=== PATIENT | female | born 1970 | race Caucasian/White ===

== ENCOUNTER → 2018-06-29 | Outpatient (CLI) | payer OTHER | LOC: M RAD 09:40 | DX: Z12.31 Encounter for screening mammogram for malignant neoplasm of breast (principal) ==

== ENCOUNTER → 2018-07-03 | Outpatient (CLI) | payer OTHER | LOC: M RAD 09:33 | DX: Z12.31 Encounter for screening mammogram for malignant neoplasm of breast (principal); Z92.29 Personal history of other drug therapy | CPT/HCPCS: 77067 ==

== ENCOUNTER → 2020-05-26 | Outpatient (CLI) | payer OTHER ==
--- NOTE | 2020-05-26 15:51 | REPMRS ---
Patient History The patient states she has not had a clinical breast exam in over a year. No known family history of cancer. Taking unspecified hormones for 22 years. Digital Woman Screen Mammo: May 26, 2020 - Exam #: [id number] Bilateral CC and MLO view(s) were taken. Technologist: Maryjane Poe, Technologist Prior study comparison: July 03, 2018, bilateral digital mammo screening bilat, performed at [facility]. May 2018, bilateral digital mammo screening bilat, performed at [facility]. FINDINGS: The breast tissue is almost entirely fat. The Volpara volumetric breast density category is: A. There is an irregular density in the medial left breast seen best on the craniocaudal view. This merits further evaluation. There has been no change in the appearance of the mammogram from the prior studies. There is no interval development of dominant mass, architectural distortion, or grouped microcalcification typical of malignancy. 3-D tomosynthesis shows no additional findings. Assessment: BI-RADS/ACR category 0 mammogram, Incomplete: Need additional imaging evaluation and/or prior mammograms for comparison. Recommendation Ultrasound and special view mammogram of the left breast. This patient's Lifetime Breast Cancer RIsk is estimated at 11.8 %. This mammogram was interpreted with the aid of an FDA-approved computer-aided dectection system. Electronically Signed By: Sukumar Bryant MD 05/26/20 0176
== END ==
LOC: M WHC 12:00
PROVIDERS: ATTEND Family Medicine
DX: R92.2 Inconclusive mammogram (principal); Z79.899 Other long term (current) drug therapy

== ENCOUNTER → 2020-06-09 | Outpatient (CLI) | payer OTHER ==
--- NOTE | 2020-06-30 08:59 | REP ---
DIAGNOSTIC MAMMOGRAM LEFT BREAST AND LEFT BREAST ULTRASOUND FINDINGS: Spot compression views and tomographic sequences are obtained of the left breast to further evaluate an irregular density seen on the prior mammogram of 05/26/2020 in the medial aspect of the left breast. Todays additional views and images show persistence of an irregular nodular opacity in the medial left breast in the region of the 9 oclock position, approximately 11 cm from the nipple. It is best seen on the tomographic sequences of the left breast in the CC and ML projections. It is not present on prior studies including 07/03/2018 and 06/26/2017. Real-time sonographic evaluation of the 9 oclock region of the left breast was performed. No cystic or solid nodule was seen sonographically in this region. IMPRESSION: ACR 4 suspicious. Persistent irregular somewhat nodular opacity medial left breast in the region of 9 oclock. This not seen on prior exams. There is no sonographic correlate. Recommend stereotactic biopsy. ACR 4 suspicious. Send letter 4. MTDD
== END ==
LOC: M WHC 11:05
PROVIDERS: ATTEND Family Medicine
DX: N63.25 Unspecified lump in the left breast, overlapping quadrants (principal)

== ENCOUNTER → 2020-08-15 | Outpatient (CLI) | payer OTHER ==
--- NOTE | 2020-08-15 10:37 | REP ---
INDICATION: R22.32 LT SHOULDER PALP LUMP,? LIPOMA COMPARISON: None TECHNIQUE: Realtime grayscale ultrasound examination using linear high-frequency transducer. FINDINGS: Directed ultrasound examination along the left shoulder in the area of palpable mass demonstrates 2.4 x 2.7 x 1.3 cm ovoid isoechoic avascular structure which is consistent with a lipoma and should be correlated with physical examination. IMPRESSION: Ovoid isoechoic lesion consistent with lipoma. <Electronically signed by Primo Alex > 08/15/20 103
--- NOTE | 2020-08-15 12:28 | REP ---
INDICATION: R92.8 ABNORMAL MAMMOGRAM LT BREAST,STEREOTACTIC BX,POST BX. COMPARISON: 06/09/2020 and 05/26/2020. TECHNIQUE: ML and CC views of left breast performed following stereotactic biopsy of irregular density medially in the left breast. FINDINGS: Biopsy clip is noted at the site of the previously identified irregular density. IMPRESSION: Good clip positioning at the site of the stereotactic biopsy medially left breast. Irregular density at that location was biopsied today stereotactically. RECOMMENDATION: Clinical follow-up. <Electronically signed by Guru Mary > 08/15/20 [id number]
[2020-08-15 13:08] VITALS: BP 124/80
--- NOTE | 2020-08-15 18:04 | REP ---
INDICATION: R92.8 ABNORMAL MAMMOGRAM LT BREAST,STEREOTACTIC BX. COMPARISON: None. TECHNIQUE: This procedure is performed by Alexandra Fernández [facility], under the direct supervision of Dr. Mary. The risks and benefits of the procedure were explained to the patient and informed consent was obtained both verbally and written. Directly prior to the start of the procedure, a formal timeout was done in the procedure room. The cranial caudal approach was utilized on the prone table. The left breast abnormality was localized using mammographic guidance. The skin was prepped and draped in a sterile fashion. Three ml of buffered lidocaine 1% lidocaine 10 mg/ml was used as a local anesthetic. FINDINGS: A 10 gauge suction assisted mammotome needle was inserted and advanced into the breast abnormality and 6 core biopsy samples were obtained. A marker clip was placed at the biopsy site. The patient tolerated the procedure well and there were no immediate complications. After the appropriate amount of monitored convalescence the patient was discharged from the department. IMPRESSION: Stereotactic biopsy of left breast with a micro clip placement. <Electronically signed by Alexandra Fernández > 08/15/20 [id number] <Electronically signed by Guru Mary > 08/15/20 1800
== END ==
LOC: M WHC 09:58
PROVIDERS: ATTEND Surgery
DX: R22.32 Localized swelling, mass and lump, left upper limb (principal); Z97.8 Presence of other specified devices

== ENCOUNTER → 2021-02-02 | Outpatient (CLI) | payer OTHER ==
--- NOTE | 2021-02-02 13:32 | REP ---
INDICATION: 6 MO F/U/DIAG LEFT BREAST MAMMO/S/P L STERIO BX. COMPARISON: Multiple TECHNIQUE: Left mammogram cc and MLO views 2D and 3D modalities FINDINGS: The left breast is unchanged in size and shape. The postprocedural clip is unchanged in position. There are no new abnormalities. IMPRESSION: BIRADS/ACR category 2 negative mammogram. The patient letter being requested is M1. RECOMMENDATION: Repeat screening mammography recommended 1 year (for women over 40). <Electronically signed by Tee Treviño > 02/02/21 [id number]
== END ==
LOC: M WHC 12:46
PROVIDERS: ATTEND Surgery
DX: R92.8 Other abnormal and inconclusive findings on diagnostic imaging of breast (principal)
CPT/HCPCS: 77065; G0279

== ENCOUNTER 2022-11-20 20:00 | Emergency (ER) | payer OTHER ==
[~2022-11-20] VITALS: Ht 170.2 cm; Wt 138.8 kg
[2022-11-20 20:47] LABS: BASO # 0.1 10^3/uL (0.0-0.2); BASO % 0.5 % (0.0-1.0); EOS # 0.1 10^3/uL (0.0-0.5); EOS % 0.7 % (0.0-3.0); HEMATOCRIT 45.2 % (36.0-47.0); HEMOGLOBIN 14.9 g/dl (12.0-15.5); LYMPH % 35.9 % (24.0-44.0); MEAN CORPUSCULAR VOLUME 88.1 fl (80.0-96.0); MONO # 0.6 10^3/uL (0.0-0.8); MONO % 4.9 % (2.0-8.0); NEUTROPHILS # 6.5 10^3/uL (1.5-8.5); NEUTROPHILS % 57.7 % (36.0-66.0); PLATELET COUNT, AUTOMATED 319 10^3/uL (150-450); RED BLOOD COUNT 5.13 10^6/uL (4.00-5.40); WHITE BLOOD COUNT 11.2 10^3/uL (4.0-10.0)
[2022-11-20 20:59] LABS: PARTIAL THROMBOPLASTIN TIME 28.6 SECONDS (24.8-34.2)
[2022-11-20 21:03] LABS: INR 0.92; PROTHROMBIN TIME 12.6 SECONDS (12.5-14.5)
[2022-11-20 21:08] LABS: CK-MB VALUE MASS < 1.0 NG/ML (<3.6)
[2022-11-20 21:10] LABS: ALBUMIN 4.4 G/DL (3.2-5.2); ALKALINE PHOSPHATASE 41 U/L (46-116); ALT/SGPT 32 U/L (7.0-40); AST/SGOT 34 U/L (<34); BILIRUBIN,DIRECT 0.2 MG/DL (<0.4); BILIRUBIN,TOTAL 0.8 MG/DL (0.3-1.2); BLOOD UREA NITROGEN 17 MG/DL (9-23); CALCIUM LEVEL 9.2 MG/DL (8.5-10.1); CARBON DIOXIDE LEVEL 26 MMOL/L (20-31); CHLORIDE LEVEL 106 MMOL/L (98-107); CHOLESTEROL LEVEL 223 MG/DL (<200); CHOLESTEROL RISK RATIO 4.44 (<5); CREATININE FOR GFR 0.66 MG/DL (0.55-1.30); GLOMERULAR FILTRATION RATE > 60.0 (>51); GLUCOSE, FASTING 92 MG/DL (60-100); HDL CHOLESTEROL 50.2 MG/DL (>40); LDL CHOLESTEROL 153.8 MG/DL (<100); NON-HDL-C 173 MG/DL; POTASSIUM SERUM 4.6 MMOL/L (3.5-5.1); SODIUM LEVEL 139 MMOL/L (136-145); TOTAL PROTEIN 7.5 G/DL (5.7-8.2); TRIGLYCERIDES LEVEL 95 MG/DL (<150)
[2022-11-20 21:11] LABS: CPK CREATINE PHOSPHOKINASE 105 U/L (34-145); MB/CK RELATIVE INDEX 0.95 (< OR =4)
[2022-11-20] MEDS ORDERED: PRED20TA PO (21:25)
[2022-11-20] MEDS ORDERED: valACYclovir HCL 500 MG TAB PO ONE (21:25)
[2022-11-20] MEDS ORDERED: VALA1TAB5 PO (21:25)
[2022-11-20] MEDS ORDERED: predniSONE 20 MG TAB PO ONE (21:25)
[2022-11-20 22:15] VITALS: BP 146/82
== END 2022-11-20 22:14 | disposition home or self-care (01) ==
LOC: M ED 20:00
DX: G51.0 Bell's palsy (principal)
CPT/HCPCS: 70450; 80047; 80048; 80061; 80076; 82550; 82553; 84484; 85025; 85610; 85730; 93005; 99284; J7512